=== PATIENT | male | born 1990 | race Two or more races ===

== ENCOUNTER 2018-11-20 09:52 | Day surgery (SDC) | payer OTHER ==
[2018-11-16 11:21] VITALS: BMI 28.3
[2018-11-20] MEDS ORDERED: MIDAZOLAM HCL 2 MG/2 ML SINGLE DOSE VIAL ONE (11:21)
[2018-11-20] MEDS ORDERED: BUPIVACAINE HCL/PF 0.5% (5MG/ML) 10 ML VIAL ONE (11:58)
[2018-11-20] MEDS ORDERED: ceFAZolin SODIUM 1 GM VIAL ONE (11:58)
[2018-11-20] MEDS ORDERED: LIDOCAINE 1%/EPI 1:100000 (20 ML MULTI DOSE VIAL) ONE (11:58)
[2018-11-20] MEDS ORDERED: BENZOIN/ALOE VERA/STORAX/TOLU 58 ML BOTTLE ONE (11:58)
[2018-11-20] MEDS ORDERED: PROPOFOL 20 ML ONE (11:59)
[2018-11-20] MEDS ORDERED: ONDANSETRON 4 MG/2 ML VIAL ONE (12:00)
[2018-11-20] MEDS ORDERED: KETOROLAC TROMETHAMINE 30 MG/1 ML VIAL ONE (12:00)
[2018-11-20] MEDS ORDERED: BUPIVACAINE HCL/PF 0.5% (5MG/ML) 10 ML VIAL IJ ONE ×2 (12:07)
[2018-11-20] MEDS ORDERED: LIDOCAINE HCL 1%, 10 MG/ML (20ML VIAL) INF ONE ×2 (12:07)
[2018-11-20] MEDS ORDERED: ONDANSETRON 4 MG/2 ML VIAL IVPUSH PRN (12:24)
[2018-11-20] MEDS ORDERED: oxyCODONE HCL 5 MG TABLET PO PRN (12:24)
[2018-11-20] MEDS ORDERED: LACTATED RINGERS SOLUTION 1,000 ML IV SCH (12:30)
[2018-11-20 13:08] VITALS: TEMP 97.7
--- NOTE | 2018-11-20 13:34 | OP ---
DATE OF OPERATION: 11/20/2018 PREOPERATIVE DIAGNOSIS: Fissure in ano with a sentinel pile. POSTOPERATIVE DIAGNOSIS: Fissure in ano with a sentinel pile. OPERATIVE PROCEDURE: Examination under anesthesia and excision of the fissure and the sentinel pile and repair with a fissurectomy. SURGEON: Brayan Anderson MD ANESTHESIA: Spinal. DESCRIPTION OF PROCEDURE: Patient was placed in the prone position after the patient was given spinal. Local with Marcaine was also injected to get some more muscle relaxation in the anal verge and inspection revealed a large ulceration on the posterior anal verge with a sentinel pile and submucosal resection of this was done. Once all the ulcerative tissue and the sentinel pile was removed, the defect in the mucosa was closed with 3-0 chronic starting from inside out, and the specimen was sent for pathology. Excellent results were obtained. After adequate hemostasis, a dressing was applied, and patient went to the recovery room. BRAYAN ANDERSON M.D. [id number]
[2018-11-20 14:31] VITALS: PULSE 56
[2018-11-20 14:36] VITALS: BP 106/67
--- NOTE | 2018-11-23 16:49 | PATH ---
Surgical Pathology Report Patient Name: ANIYAH CARR [facility]. Rec. #: [id number] /Age/Gender: 1990 (Age: 27) / M Account: [id number] Location: [facility] AMBULATORY Taken: 11/20/2018 Received: 11/20/2018 Reported: 11/23/2018 Physicians: Brayan Anderson M.D. Specimen(s) Received FISSURE AND HEMORRHOID Clinical History Hemorrhoids Final Diagnosis FISSURE AND HEMORRHOIDS, HEMORRHOIDECTOMY AND FISSURECTOMY: SQUAMOCOLUMNAR MUCOSA AND SKIN SHOWING CHRONIC INFLAMMATION AND HEMORRHOIDS. Electronically Signed Sherri Velazquez M.D. Gross Description Received in formalin labeled "fissure and hemorrhoid," are 2 [address] portions of skin and soft tissue measuring 1.1 x 0.4 x 0.2 cm and 2.5 x 0.6 x 0.5 cm, possibly consistent with hemorrhoids. The larger portion is bisected and the specimen is entirely submitted in one cassette. /11/21/2018 saudi11/21/2018
== END 2018-11-20 14:30 | disposition home or self-care (01) ==
LOC: FASU 09:52
PROVIDERS: ATTEND Surgery Vascular Surgery
PROC: 0DBQ0ZZ Excision of Anus, Open Approach (ICD-10-PCS; principal; 2018-11-20 11:30)
DX: K60.2 Anal fissure, unspecified (principal); K64.4 Residual hemorrhoidal skin tags
CPT/HCPCS: 88304-TC; 94760